=== PATIENT | female | born 1975 | race Caucasian/White ===

== ENCOUNTER 2017-06-12 21:10 | Emergency (ER) | payer BC ==
--- NOTE | ~2017-06-12 | CR126 ---
[facility] A Service of [facility] RADIOLOGY TEXT RESULTS PATIENT: TANIA DIAZ LOCATION: SED : 71 UNIT #: [id number] AGE: [address]: Edwige Springer PAC SEX: F ORDER DR: [id number] [place] [id number] E MR#: [id number] Acc #: [id number] NAME: TANIA DIAZ. : 1975 SEX: F STUDY DATE/TIME: 06/12/2017 22:04 UNIT: SED ROOM: STUDY DESCRIPTION: CR Foot Complete Min 3 View Lt Attending Physician: Sheridan Santos Ordering Physician: Sheridan Santos Primary Care Physician: Gabriela Hoang M.D. MEDICAL IMAGING REPORT This report is preliminary unless electronic signature is present. EXAM Left foot, 3 views COMPARISON 3 views of the left ankle on same date. HISTORY 41-year-old female with left foot pain after falling down the stairs today. FINDINGS Bones are intact. No dislocation. There is a small to moderate enthesophyte at the plantar fascial attachment of the calcaneus. IMPRESSION No acute fracture or dislocation of the left foot. Dictated by... Hector Swenson M.D. THIS IS AN ELECTRONICALLY VERIFIED REPORT Hector Swenson M.D. at 06/17/2017 1:43 PM SEN/rnr TD: 06/13/2017 03:16 JOB #: [id number] MEDICAL IMAGING REPORT [facility] A Service of [facility] RADIOLOGY TEXT RESULTS PATIENT: TANIA DIAZ LOCATION: SED : 73 UNIT #: [id number] AGE: [address]: Edwige Springer PAC SEX: F ORDER DR: Page 1 of 1
--- NOTE | ~2017-06-12 | CR20 ---
[facility] A Service of [facility] RADIOLOGY TEXT RESULTS PATIENT: TANIA DIAZ LOCATION: SED : 73 UNIT #: [id number] AGE: [address]: Edwige Springer SEX: F ORDER DR: [id number] [place] [id number] E MR#: [id number] Acc #: [id number] NAME: TANIA DIAZ : 1975 SEX: F STUDY DATE/TIME: 06/12/2017 22:04 UNIT: SED ROOM: STUDY DESCRIPTION: CR Ankle Min 3 Views Lt Attending Physician: Sheridan Santos Ordering Physician: Sheridan Santos Primary Care Physician: Gabriela Hoang M.D. MEDICAL IMAGING REPORT This report is preliminary unless electronic signature is present. EXAM Left ankle, 3 views COMPARISON 3 views of the left foot on the same date. INDICATION 41-year-old female with left ankle pain after falling down the stairs tonight. FINDINGS Bones are anatomically aligned. No evidence of acute fracture. There is a small to moderate enthesophyte at the plantar fascial attachment of the calcaneus. IMPRESSION No acute fracture or dislocation of the left ankle. Dictated by... Hector Swenson M.D. THIS IS AN ELECTRONICALLY VERIFIED REPORT Hector Swenson M.D. at 06/17/2017 1:43 PM SEN/genaror TD: 06/13/2017 03:13 JOB #: [id number] MEDICAL IMAGING REPORT Page 1 of 1
[~2017-06-12 21:10] MED LIST: ADDERALL20 MG PO; ALPRAZOLAM PO; AMOXICILLIN875 MG PO; ASPIRIN PO; BENICAR PO; CECLOR PO; CHOLESTEROL MEDS; COUMADIN PO; CRESTOR PO; DARVOCET-N 1001 TAB PO; DEXFOL PO; FLEXERIL PO; HEPARIN SUBQ; LASIX PO; LORTAB 7.5-5001 TAB PO; MICRO-K10 ME2 PO; MICRO-K10 MEQ PO; NORVASC PO; NORVASC10 MG PO; PERCOCET PO; PRENATAL VITAMI1 TA3 PO; PRISTIQ50 MG PO; TOPAMAX PO; TOPAMAX25 MG PO; TYLOX 5/500 CAP1 CAP PO; VICODIN 5/500 T1 TAB PO; VICODIN PO; XANAX0.5 M1; ZOFRAN PO; [UNRECOGNIZED DRUG - OTHER]
[2017-06-12] MEDS ORDERED: AMOXICILLIN500 M1 PO (21:21)
[2017-06-12] MEDS ORDERED: BIAXIN PO (21:21)
[2017-06-12] MEDS ORDERED: HCTZ PO (21:22)
[2017-06-12] MEDS ORDERED: BENICAR PO (21:23)
[2017-06-12] MEDS ORDERED: LASIX PO (21:23)
[2017-06-12] MEDS ORDERED: K-DUR20 ME1 PO (21:23)
[2017-06-12] MEDS ORDERED: VICODIN ES 7.51 EAC1 PO (21:24)
[2017-06-12] MEDS ORDERED: ALPRAZOLAM PO (21:24)
[2017-06-12] MEDS ORDERED: LYRICA PO (21:25)
== END 2017-06-12 23:40 | disposition home or self-care (01) ==
LOC: SED 21:10
DX: S99.912A Unspecified injury of left ankle, initial encounter (principal); S99.922A Unspecified injury of left foot, initial encounter; W10.9XXA Fall (on) (from) unspecified stairs and steps, initial encounter; Z91.81 History of falling; Y92.009 Unspecified place in unspecified non-institutional (private) residence as the place of occurrence of the external cause; Z88.8 Allergy status to other drugs, medicaments and biological substances
CPT/HCPCS: 29540; 73610; 73630; 99283